=== PATIENT | male | born 1970 | race Two or more races ===

== ENCOUNTER 2025-11-18 09:55 | Day surgery (SDC) | payer OTHER, SELFPAY ==
[2025-11-18] VITALS (10 sets, daily range): BP systolic 99–153; BP diastolic 73–99; PULSE 61–93; RESP 13–19; TEMP 36.4–36.7; O2SAT 92–97; BMI 28.8
--- NOTE | 2025-11-18 12:32 | SUR.PHASEI ---
1232: Pt. arrived with oral airway in place, vitals stable, breathing unlabored, no signs of distress, quick catheter in place, report received from MD Zavaleta and Michael RN.
--- NOTE | 2025-11-18 12:51 | SUR.OPER ---
Pt in flex care accompanied by two correctinal officer at bedside. NATALIE Canela accompanied patient into OR-3, removed left handcuff and leg cuffs and remained in OR during the procedure. After the procedure the officer placed the upper and lower extremity handcuffs and accompanied patient to recovery without incident.
--- NOTE | 2025-11-18 14:00 | SUR.PHASEII ---
1400: Pt. AAOx4, vitals stable, breathing unlabored, no complaint of pain or nausea, quick catheter in place, pt. had slight blood on urethra, notified MD Bah and he stated that it was ok. Gave discharge instructions to the pt. and the CO, both verbalized understanding and had no further questions. Pt. ambulated to wheelchair with steady gait and no assist. Pt. left with all personal belongings.
--- NOTE | 2025-11-18 15:32 | ESHP_ITS ---
RE: SHIV GREEN : 1970 DATE OF ADMISSION: 11/17/2025 HISTORY OF PRESENT ILLNESS: Patient is a 56-year-old gentleman with history of slow urinary stream and nocturia x4 and has dribbling. He is a Chinese-speaking male. PAST MEDICAL HISTORY: He had a cystoscopy done in 2011 in [place]. PAST SURGICAL HISTORY: Included surgery on his right thigh for the accident. He has no children. ALLERGIES: NONE KNOWN. There is no history of diabetes mellitus. No history of hypertension. MEDICATIONS: 1. He takes statin medication. 2. Finasteride. 3. Tamsulosin 0.8 mg every day. LABORATORY DATA: His PSA is 0.5. PHYSICAL EXAMINATION: Clinical examination reveals: HEENT: Normal. NECK: Supple. LUNGS: Clear. HEART: Sounds are normal. ABDOMEN: Soft without any organomegaly. No guarding. No rigidity. EXTREMITIES: Normal. GENITOURINARY: Phallus is normal. Testes are down in scrotum. RECTAL: Examination revealed moderately enlarged smooth prostate. DIAGNOSIS: Benign prostatic hyperplasia and is scheduled to have cystoscopy. PLAN: Planned procedure, risks and complications have been discussed with the patient. Patient understood them and agreed to proceed. Thank you very much for your kind referral. cc: [facility] DT: 10:55:39 TT: 11:11:00 Ref: [id number] - TID: [id number]
--- NOTE | 2025-11-18 20:43 | ESOP_ITS ---
RE: SHIV GREEN : 1970 PREOPERATIVE DIAGNOSES: 1. Urethral stricture. 2. Prostatic obstruction. POSTOPERATIVE DIAGNOSES: 1. Urethral stricture. 2. Prostatic obstruction. PROCEDURES PERFORMED: 1. Cystoscopy. 2. Internal visual urethrotomy for tight penile urethral stricture and bulbar urethral stricture. 3. Urethral dilatation. ANESTHESIA: General by Dr. Zavaleta. INDICATION: The patient is a 55-year-old gentleman with history of weak urinary stream with frequency. He has been on tamsulosin 0.8 mg with finasteride. His PSA has been normal. He had a cystoscopy done elsewhere several years ago where he was found to have urethral stricture and prostatic obstruction. He was then sent to me and now he is scheduled to have cystoscopy and possible internal visual urethrotomy. Planned procedure, risks, and complications have been discussed with the patient. The patient understood them and agreed to proceed. DESCRIPTION OF PROCEDURE: After the patient was brought to the operating table, under adequate general anesthesia given by Dr. Zavaleta, he was placed in dorsal lithotomy position. Parts were prepped and draped in the usual fashion. Cystoscopy was then attempted, which revealed the patient with moderate phimosis. After I passed the scope inside the meatus for about 1 cm, I found a tight penile urethral stricture through which the scope could not be passed. I used a Storz internal urethrotome and then did an internal visual urethrotomy for the tight penile urethral stricture. There was another stricture also through the bulbar urethra. I opened that up. There was an extensive stricture of the entire penile urethra and the bulbar urethra. Prostatic urethra was visualized, which showed mild enlargement of prostate. Scope was introduced into the bladder. There are no intravascular stones or tumors. A guidewire was inserted through the scope inside the bladder and I pulled out the scope and I put a 16-Mongolian catheter over the guidewire into the bladder. The catheter was then connected to a bag and the patient was then transferred to the recovery room in a satisfactory condition having tolerated the entire procedure well. IMPRESSION: Extremely tight extensive stricture of the urethra into the penile urethra and bulbar urethra. Internal visual urethrotomy was carried out. A 16-Mongolian Estevez catheter was inserted. PLAN: We will leave the Estevez catheter at least for 1 month, which would be connected to a bag. The patient should have ciprofloxacin 500 mg twice a day for 10 days. I will see him in my office in [place] in 4 weeks' time. cc: [facility] DT: 12:41:36 TT: 20:42:00 Ref: [id number] - TID: [id number]
== END 2025-11-18 14:00 ==
PROVIDERS: Referring Provider Surgery; Visit Provider Surgery
PROC: 0T7D8ZZ Dilation of Urethra, Via Natural or Artificial Opening Endoscopic (ICD-10-PCS; CPT 52276; principal; 2025-11-18 13:15)
DX: N35.912 Unspecified bulbous urethral stricture, male (principal); N40.1 Benign prostatic hyperplasia with lower urinary tract symptoms; N13.8 Other obstructive and reflux uropathy; R35.1 Nocturia; N47.1 Phimosis
CPT/HCPCS: 52276; A4217; A4649; J1956; J2250; J2704; J3010